=== PATIENT | male | born 1975 | race Caucasian/White ===

== ENCOUNTER → 2017-12-20 07:29 | Outpatient (CLI) | payer BC, SELFPAY ==
[2017-12-20 08:14] LABS: ALB/GLOB Ratio 0.9 RATIO (0.9-2.4); AST(SGOT) 19 U/L (15-37); Alanine Aminotransfer ALT/SGPT 44 U/L (16-61); Albumin, Serum 3.6 g/dL (3.2-5.0); Alkaline Phosphatase 104 U/L (45-117); Anion Gap 7 (5-15); BUN 9 mg/dL (7-18); BUN/Creat Ratio 7.4 RATIO (10-20); Calcium,Total 9.1 mg/dL (8.5-10.1); Chloride 105 mmol/L (98-107); Cholesterol 166 mg/dL (200); Creatinine, Serum 1.21 mg/dL (0.70-1.30); EST Glomerular Filtration Rate 70 mL/min (>60); Est Glom Filt Rate - Afr Amer 85 mL/min (>60); Globulin 4.1 g/dL (2.2-4.2); Glucose 81 mg/dL (74-106); High Density Lipoprotein 46 mg/dL; Potassium 4.1 mmol/L (3.5-5.1); Protein, Total 7.7 g/dL (6.4-8.2); Sodium Level 141 mmol/L (136-145); Triglycerides 80 mg/dL; Very Low Density Lipoprotein 16 mg/dL (5-40)
== END ==
PROVIDERS: Family Provider Family Medicine; PCP Family Medicine; Referring Provider Family Medicine; Visit Provider Family Medicine
DX: Z00.00 Encounter for general adult medical examination without abnormal findings (principal)
CPT/HCPCS: 36415; 80053; 80061

== ENCOUNTER 2018-01-11 10:10 | Emergency (ER) | payer BC, SELFPAY ==
[2018-01-11 10:10] VITALS: BP 146/97; PULSE 68; RESP 19; TEMP 36.6; O2SAT 99; BMI 24.3
[2018-01-11 10:20] VITALS: O2SAT 97
--- NOTE | 2018-01-11 10:20 | EKG12_ITS ---
Test Reason : CP Blood Pressure : / mmHG Vent. Rate : 078 BPM Atrial Rate : 078 BPM P-R Int : 164 ms QRS Dur : 102 ms QT Int : 420 ms P-R-T Axes : 063 059 056 degrees QTc Int : 478 ms Normal sinus rhythm Low voltage QRS (LIMB LEADS) Confirmed by AMARILIS BURGER, NELLA ([id number]), associate entertainment editor AURA MUNIZ ([id number] on 01/13/2018 3:00:48 PM Referred By: Confirmed By:NELLA OLMOS MD
--- NOTE | 2018-01-11 10:20 | RAD_ITS ---
STUDY: X-RAY CHEST REASON FOR EXAM: Male, 43 years old. Chest discomfort TECHNIQUE: Frontal views COMPARISON: September 23, 2016 FINDINGS: The lungs are expanded. There is a left lower lobe probable granuloma. Normal size heart. Normal mediastinum and jovana. Normal visualized pulmonary arteries. Normal visualized aortic arch and descending thoracic aorta. Normal visualized thoracic spine. Normal visualized ribs, clavicles, and shoulders. There is no demonstrated abnormality of the visualized soft tissue structures of the upper abdomen. RAD/Chest 1 View (Portable) IMPRESSION: Probable left lower lobe granuloma. Electronically Signed: Esvin Grant DO at 11:02 EST Tel [phone], Service support ,
--- NOTE | 2018-01-11 10:21 | ED.VISSUMM ---
- ER Visit Summary Date of Service: 01/11/18 Chief Complaint: Chest pain History of Present Illness: The patient is a 43 M with chest pain that started directly over the past week or more. He is having left side dullness and heaviness and fluttering. He also gets lightheaded and short of breath at times. He thinks he might have an anxiety component to this. Symptoms seem to be getting worse over the past week. Today he had symptoms starting at 830 and they have been constant but they seem to be getting better. He had a history of an AV ablation about 10 years ago for V. tach. He denies any other heart disease. He is not taking any medications. He does not have a pacer/defibrillator. He has had these symptoms on and off from time to time, but they seem to be getting worse. He has worn a 30-day monitor on multiple occasions and has occasional ectopic beats, but he says otherwise his monitoring has been unremarkable. No other new or different symptoms today. No history of ACS, PE, or aortic pathology. No recent illness or infections. Physical Examination: Afebrile and vital signs unremarkable. Patient sitting upright and appears comfortable. Alert and oriented. No acute distress. Skin appears normal without diaphoresis or pallor. Heart regular rate and rhythm. Lungs clear. Abdomen soft. No edema noted. Calves soft and supple. Pulses strong and equal, symmetric. Test Results: EKG shows sinus rhythm at a rate of 78. No sign of ischemia or infarction pattern. No ectopic beats or dysrhythmias noted. Laboratory studies and chest x-ray are pending. Emergency Department Course and Treatment: Patient was placed on a monitor. Will check EKG, chest x-ray, and labs. Will monitor and then reevaluate. X-ray showed a left lower lobe granuloma suspected. CBC, metabolic panel and troponin normal. Patient symptoms have waned since he has been here. No dysrhythmias or hypotension noted. Blood pressure remains in the high normal range and heart rate has been in the 70s and 80s. I spoke with Dr. Reyna. Will start the patient on Toprol-XL 50 mg daily. Patient was advised to follow-up in the office. Treatment Plan: As above Disposition: Discharge Impression: Palpitations This note was generated with [employer] dictation software. It may contain incorrect words, spelling, and punctuation that were not noted in review of the chart prior to signing ED Disposition - Plan for ED Patient: Chief Complaint: Chest Pain Referrals: Osiel Linares MD [Primary Care Provider] -
[2018-01-11 10:29] LABS: Absolute Lymphocyte Count 1.84 X10^3/ul (0.83-4.51); Absolute Neutrophil Count 4.4 X10^3/uL (2.0-7.7); Basophil# 0.04 X10^3/uL; Basophil% 0.6 % (0-1); Eosinophil# 0.18 X10^3/uL; Eosinophils% 2.5 % (0-5); Hematocrit 44.2 % (40-54); Hemoglobin 15.5 g/dl (13.0-16.5); Lymphocyte # 1.84 X10^3/ul (4.0); Lymphocyte % 25.7 % (19-41); Mean Corp Hgb Conc 35.1 g/gl (32-36); Mean Corpuscular Volume 85.7 fL (80-94); Mean Platelet Vol. 8.7 fl (6.2-12.0); Monocyte# 0.64 X10^3/uL; Neutrophil # 4.44 X10^3/uL (2.7-7.7); Neutrophil % 62.1 % (47-70); POSITIVE COUNT NO; POSITIVE DIFFERENTIAL NO; POSITIVE MORPHOLOGY NO; Platelet Count 255 K/mm3 (150-450); RBC Distribution Width CV 12.9 % (11.6-14.6); RBC Distribution Width SD 39.2 fl (35.1-43.9); Red Blood Count 5.16 M/mm3 (4.6-6.2); White Blood Count 7.2 K/mm3 (4.4-11.0)
[2018-01-11 10:45] LABS: Anion Gap 7 (5-15); BUN 12 mg/dL (7-18); BUN/Creat Ratio 10.8 RATIO (10-20); Chloride 104 mmol/L (98-107); Creatinine, Serum 1.11 mg/dL (0.70-1.30); EST Glomerular Filtration Rate 77 mL/min (>60); Est Glom Filt Rate - Afr Amer 93 mL/min (>60); Estimated Creatinine Clearance 103.62 ml/min; Glucose 100 mg/dL (74-106); Potassium 3.7 mmol/L (3.5-5.1); Sodium Level 140 mmol/L (136-145)
[2018-01-11 11:17] VITALS: BP 136/90; PULSE 63; RESP 15; O2SAT 97
[2018-01-11 11:39] VITALS: PULSE 88; RESP 22; O2SAT 98
--- NOTE | 2018-01-11 11:47 | ED.DEP ---
ED Disposition - Plan for ED Patient: Chief Complaint: Chest Pain Instructions: ED Palpitations Prescriptions: Metoprolol Succinate [Toprol Xl] 50 mg PO DAILY #30 tab.er.24h Referrals: Tony Reyna MD [STAFF PHYSICIAN] -
[2018-01-11 12:10] VITALS: BP 135/97; PULSE 65; RESP 15; O2SAT 98
--- NOTE | 2018-01-11 12:10 | ED.RN ---
IV DC'ED, CATHETER INTACT, SMALL GAUZE DRESSING PLACED. DISCHARGE INSTRUCTIONS GIVEN TO AND REVIEWED WITH PATIENT, PATIENT DENIES QUESTIONS OR CONCERNS AND VOICES UNDERSTANDING OF DISCHARGE INSTRUCTIONS. PT AMBULATES OUT OF ROOM WITHOUT DIFFICULTY.
--- OUTSIDE RECORDS SUMMARY | 2018-03-06 22:52 | XMS RPT_ITS ---
:1975 Author Organization [facility] Support Name Relationship Address Phone [employer] Unavailable [address] + [place] [address] NELSON ROBLEDO Unavailable [address] + [place] [address] EDIS ROBLEDO/MIKA Unavailable [address] + [place] [address] [employer] Unavailable [address] + [place] [address] NELSON ROBLEDO Unavailable [address] + [place] [address] EDIS ROBLEDO/MIKA Unavailable [address] + [place] [address] [employer] Unavailable [address] + [place] [address] NELSON ROBLEDO Unavailable [address] + [place] [address] EDIS ROBLEDO/MIKA Unavailable [address] + [place] [address] JESUSITA ROBLEDO Unavailable Unavailable + JESUSITA ROBLEDO Unavailable Unavailable + [employer] Unavailable [address] + [place] [address] NELSON ROBLEDO Unavailable [address] + [place] [address] EDIS ROBLEDO/MIKA Unavailable [address] + [place] [address] [employer] Unavailable [address] + [place] [address] NELSON ROBLEDO Unavailable [address] [facility] + [place] [address] EDIS ROBLEDO/MIKA Unavailable [address] + [place] [address] [employer] Unavailable [address] + [place] [address] NELSON ROBLEDO Unavailable [address] + [place] [address] EDIS ROBLEDO/MIKA Unavailable [address] + [place] [address] Care Team Providers Name Role Phone Tony Olmos Attending Unavailable OSIEL ROA Referring Unavailable Monalisa Lea Attending Unavailable Tony Olmos Attending Unavailable OSIEL ROA Referring Unavailable OSIEL ROA Attending Unavailable OSIEL ROA Referring Unavailable OSIEL ROA Primary Care Unavailable OSIEL ROA Primary Care Unavailable Andrew Santos Attending Unavailable Jaison Robison Attending Unavailable OSIEL ROA Referring Unavailable LETTY MCARTHUR Attending Unavailable *SELF, REFERRED Referring Unavailable PROBLEMS PROBLEMS DATE TYPE CONDITION / CODE ATTENDING STATUS SOURCE 12/20/2017 Unknown Z00.00 - OSIEL ROA Active [place] Encounter for [facility] medical Repository examination without abnormal findings / Z00.00(ICD-10) PROCEDURES PROCEDURES No Procedure Records FoundRESULTS RESULTS 12 LEAD ELECTROCARDIOGRAM Observed: 01/13/2018 Status: F Source: [place] 3:00 PM [facility] REPOSITORY [facility] Cardiovascular Services [address] [place] [address] 12 Lead EKG 01/11/18 1014 MR#: [id number] Acct: [id number] Name: FRANCISCO ROBLDEO Rep #: [id number] : 1975 43 From: Tony Olmos MD Attending Dr: Status: DEP ER Ordering Dr: Andrew Santos MD Date: 01/11/18 Location: ED Sex: M C Admitted: Test Reason : CP Blood Pressure : / mmHG Vent. Rate : 078 BPM Atrial Rate : 078 BPM P-R Int : 164 ms QRS Dur : 102 ms QT Int : 420 ms P-R-T Axes : 063 059 056 degrees QTc Int : 478 ms Normal sinus rhythm Low voltage QRS (LIMB LEADS) Confirmed by AMARILIS BURGER, TONY ([id number]), editor & co founder AURA MUNIZ ([id number]) on 01/13/2018 3:00:48 PM Referred By: Confirmed By:TONY OLMOS MD 01/13/18 1500 Date Tony Olmos MD CC: Andrew Santos MD; Osiel Roa MD Signed CARDIOLOGY VISIT Observed: 01/13/2018 Status: F Source: [place] REPORT 11:40 AM [facility] REPOSITORY [place] [facility] [address] [facility] [place] [address] OFFICE VISIT Date of Service: 01/13/18 MR#: [id number] Acct: [id number] Name: FRANCISCO ROBLEDO Rep #: [id number] : 1975 Provider: HAILEY Robison Age/Sex: 43/M Location: [facility] Status: Signed HPI HPI Details: FRANCISCO ROBLEDO, is a 43 M who presents to the office today for a cardiovascular outpatient follow-up. He has a history of underlying palpitations and paroxysmal supraventricular tachycardia status post AV slow pathway ablation in 2007 at [facility]. He presented to [facility] emergency department in January 2018 for worsening chest pain and palpitations over 1 week. His workup was negative, he was started metoprolol 50 mg p.o. daily, and he was discharged home. He states feeling more fatigued since starting metoprolol. He states waking up this morning with calf pain. Pt. denies chest, arm, jaw, or neck discomfort. His exercise tolerance is stable. Pt. denies symptoms of CHF, palpitations, near syncope, or syncopal episodes. Pt. denies edema or claudication issues. Pt. denies orthopnea, PND, fever, chills, blood in urine, blood in stool, or myalgia. Intake Vital Signs01/13/18 Height 6 ft 3 in 01/13/18 Weight: 204 lb 01/13/18 Body Mass Index (BMI) 25.4 01/13/18 Blood Pressure 116/70 01/13/18 Blood Pressure Location Lt brachial Intake Visit Reasons: fluttering Vermin Exterminator Required: No Accompanied by: None Is patient in pain?: No Allergies No Known Allergies Allergy (Verified 01/13/18 09:07) Medications metoprolol succinate ER 25 mg tablet,extended release 24 hr 25 mg PO DAILY #30 tab 01/13/18 [Rx Confirmed 01/13/18] Ejection fraction %: 60 to 64 PFSH Medical History Palpitations (Chronic) Paroxysmal SVT (supraventricular tachycardia) (Chronic) GERD (gastroesophageal reflux disease) (Chronic) [place] disease (Chronic) Surgical History H/O prior ablation treatment (Resolved 2007) History of hemorrhoidectomy (Resolved) Family History Mother Hypertension Grandfather Myocardial infarction, Onset Age: 59 Grandfather CHF (congestive heart failure) Social History Smoking Status: Never smoker alcohol intake: current alcohol intake frequency: a few times a week Alcohol type: beer, wine substance use type: does not use caffeine: Yes Type: coffee Number of servings: 3 ROS Const Const: Positive for fatigue; negative for weakness, body ache, fever(s) or chills ENT ENT: Negative for dizziness Cardio Chest Pain: No Palpitations: No Edema: None Muscle aches with walking: None Resp Respiratory: Negative for SOB with activity, SOB at rest, SOB orthopnea\SOB lying down or paroxysmal nocturnal dyspnea GI GI: Negative nausea, black,tarry stools, bright, red blood in stools or vomiting blood/hematemesis : Negative for hematuria or frequent nighttime urination/ nocturia Musc Musc: Negative for muscle aches/ myalgia Skin Skin: Negative non-healing lesions or rash Neuro Neuro: Negative for weakness, dizziness, lightheadedness, near syncope, syncope or orthostatic symptoms Endo Endo: Positive for fatigue Allergy Allergy/Immunology: Negative for rash Cardiology Exam Const Appearance: cooperative, healthy appearing, comfortable, no acute distress, well developed and well groomed Nutritional Appearance: average body habitus and well nourished Orientation: alert, awake and oriented x3 Head Head: normal to inspection, normocephalic and atraumatic Ears: hearing grossly normal bilaterally Nose: external nose normal Face and Sinus: face symmetric Mouth: oral mucosae normal Teeth and gingiva: dentition normal Eyes Eyelids: eyelids normal Conjunctivae: conjunctivae normal Pupils: PERRL EOM: EOM intact bilaterally Neck Neck: normal visual inspection and full ROM Carotids: normal carotid upstroke Chest Chest inspection: normal inspection of the chest, symmetric chest movement and normal respiratory effort Auscultation: Bilateral: Clear to Auscultation Cardio Palpation: normal PMI Rate: regular rate Rhythm: regular rhythm Heart sounds: S1 normal and S2 normal; negative rub, gallop or murmur GI GI: normal to inspection Neuro General: alert, awake, oriented x3, gait normal, moves all extremities, no focal sensory deficit and no focal motor deficits Skin Skin: no rashes or lesions noted Extremities Pulses: Normal: Right Posterior Tibial Pulse, Left Posterior Tibial Pulse, Right Radial Pulse, Left Radial Pulse Lower Extremity Edema: None: Bilateral Psych Psychological: normal affect Supplemental Info He did have a transthoracic echocardiogram on 07/18/2015. Interpretation Summary Left ventricular systolic function is normal. The estimated ejection fraction is 60 %. Trivial mitral valve insufficiency. Mild tricuspid valve insufficiency. Trivial pulmonic valve insufficiency. Right ventricular systolic pressure estimated to be 21 mmHg. He had a stress echocardiogram performed on 06/20/2006. That was considered a negative stress echocardiogram. He had a cardiac catheterization performed on 08/26/2007 at [facility]. At that time he was considered to have normal coronary arteries with mild systolic dysfunction with a reported LVEF of 53% He had an electrophysiology study performed on 08/27/2007 at [facility]. 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 A Holter monitor was performed on 10/01/2016. This is a 24 hour scan, Normal Sinus Rhythm. Average heart rate was 58 BPM Minimum heart rate was 34 BPM at 4:28 AM, Sinus Bradycardia Maximum heart rate was 96 BPM at 10:35 PM, Normal Sinus Rhythm There were a total of 7 compensatory pauses. No runs noted, No atrial fibrillation noted. The longest R-R interval was 1.9 seconds at 4:28 AM The patient kept a diary with 2 symptoms of feeling chest pain, that did no correlate with scan and one episode of feeling palps, which did not correlate with scan Assessment AND Plan 1. Palpitations R00.2 Plan Patient denies any recurrent palpitations since initiating beta-danny. His beta-danny will be decreased due to side effects. We will continue to monitor. 2. Paroxysmal SVT (supraventricular tachycardia) I47.1 S/P AV slow pathway ablation at [facility] in 2007; Plan His heart rate is well-controlled today in office. His heart rate in the emergency department was also well controlled. He states that his recent palpitations did not feel similar to SVT noted in 2008. If his palpitations become more frequent or predictive we will consider event monitor for further evaluation. If his symptoms are recurring and arrhythmia cannot be detected, we can consider a loop recorder for further evaluation. However, at this time he will continue with beta-danny and we will monitor. 3. Fatigue, unspecified type R53.83 Plan Since initiating beta-danny he has noted more fatigue. He will decrease his beta-danny to 25 mg p.o. daily. We will continue to monitor symptoms. If his palpitations worsen at this lower dose we will return to 50 mg and monitor for worsening fatigue. Perhaps, this improves after being on beta-danny longer. He will continue follow- up with primary care physician for other etiology. Plan Detail Other Medications New: Additional Comments Thank you for allowing us to participate in the patient's plan of care, if you have any questions please do not hesitate to call. This note was generated using a voice recognition system and there may be incorrect words, spelling, or punctuation that were not noted upon reviewing the office note prior to saving. Follow Up 12 Months (PFM) Coding Level of Care Code Off vis,est,level 3 Diagnoses Palpitations R00.2 Paroxysmal SVT (supraventricular tachycardia) I47.1 Fatigue, unspecified type R53.83 Fatigue type: unspecified Coding Level of Care Code Off vis,est,level 3 Diagnoses Palpitations R00.2 Paroxysmal SVT (supraventricular tachycardia) I47.1 Fatigue, unspecified type R53.83 Fatigue type: unspecified 01/13/18 1140 <Electronically signed by Jaison PFEIFFER> Date Jaison H Roof COMMUNITY WORKER-C Cosigner Signature: Date (if applicable) CC: Osiel Roa MD DISCHARGE INSTRUCTION Observed: 01/11/2018 Status: F Source: [place] 4:54 PM [facility] REPOSITORY [facility] Medical Records Department [address] [place] [address] Discharge Instruction 01/11/18 1147 MR#: [id number] Acct: [id number] Name: FRANCISCO ROBLEDO Rep #: [id number] : 1975 43 From: Andrew Santos MD PCP: Osiel Roa MD Status: DEP ER ED Disposition - Plan for ED Patient: Chief Complaint: Chest Pain Instructions: ED Palpitations Prescriptions: Metoprolol Succinate [Toprol Xl] 50 mg PO DAILY #30 tab.er.24h Referrals: Tony Olmos MD [STAFF PHYSICIAN] - What to do if you have Problems For any increased pain, shortness of breath, bleeding, nausea or vomiting, chest pain, or any unexpected problems, contact your Primary Care Provider. Call [facility] ([phone]) or report to the closest Emergency Room. Call 911 if necessary. 01/11/18 9444 <Electronically signed by Andrew Santos MD> Date Andrew Santos MD Cosigner Signature (If Indicated): Date CC: Osiel Roa MD EMERGENCY DEPARTMENT Observed: 01/11/2018 Status: F Source: [place] SUMMARY 4:54 PM [facility] REPOSITORY [facility] Medical Records Department [address] [place] [place] [address] Emergency Department Summary 01/11/18 1021 MR#: [id number] Acct: [id number] Name: FRANCISCO ROBLEDO Rep #: [id number] : 1975 43 From: Andrew Santos MD PCP: Osiel Roa MD Status: DEP ER - ER Visit Summary Date of Service: 01/11/18 Chief Complaint: Chest pain History of Present Illness: The patient is a 43 M with chest pain that started directly over the past week or more. He is having left side dullness and heaviness and fluttering. He also gets lightheaded and short of breath at times. He thinks he might have an anxiety component to this. Symptoms seem to be getting worse over the past week. Today he had symptoms starting at 830 and they have been constant but they seem to be getting better. He had a history of an AV ablation about 10 years ago for V. tach. He denies any other heart disease. He is not taking any medications. He does not have a pacer/defibrillator. He has had these symptoms on and off from time to time, but they seem to be getting worse. He has worn a 30-day monitor on multiple occasions and has occasional ectopic beats, but he says otherwise his monitoring has been unremarkable. No other new or different symptoms today. No history of ACS, PE, or aortic pathology. No recent illness or infections. Physical Examination: Afebrile and vital signs unremarkable. Patient sitting upright and appears comfortable. Alert and oriented. No acute distress. Skin appears normal without diaphoresis or pallor. Heart regular rate and rhythm. Lungs clear. Abdomen soft. No edema noted. Calves soft and supple. Pulses strong and equal, symmetric. Test Results: EKG shows sinus rhythm at a rate of 78. No sign of ischemia or infarction pattern. No ectopic beats or dysrhythmias noted. Laboratory studies and chest x-ray are pending. Emergency Department Course and Treatment: Patient was placed on a monitor. Will check EKG, chest x-ray, and labs. Will monitor and then reevaluate. X-ray showed a left lower lobe granuloma suspected. CBC, metabolic panel and troponin normal. Patient symptoms have waned since he has been here. No dysrhythmias or hypotension noted. Blood pressure remains in the high normal range and heart rate has been in the 70s and 80s. I spoke with Dr. Olmos. Will start the patient on Toprol- XL 50 mg daily. Patient was advised to follow-up in the office. Treatment Plan: As above Disposition: Discharge Impression: Palpitations This note was generated with Agili[employer] dictation software. It may contain incorrect words, spelling, and punctuation that were not noted in review of the chart prior to signing ED Disposition - Plan for ED Patient: Chief Complaint: Chest Pain Referrals: Osiel Roa MD [Primary Care Provider] - What to do if you have Problems For any increased pain, shortness of breath, bleeding, nausea or vomiting, chest pain, or any unexpected problems, contact your Primary Care Provider. Call [facility] ([phone]) or report to the closest Emergency Room. Call 911 if necessary. 01/11/18 8494 <Electronically signed by Andrew Santos MD> Date Andrew Santos MD Cosigner Signature (If Indicated): Date CC: Osiel Roa MD CHEST 1 VIEW Observed: 01/11/2018 Status: F Source: [place] (PORTABLE) 10:21 AM [facility] REPOSITORY [facility] Imaging Services [address] [place] [address] Chest 1 View (Portable) MR#: [id number] Acct: [id number] Name: FRANCISCO ROBLEDO Rep #: [id number] : 1975 M 43 From: Esvin Grant DO PCP: Osiel Roa MD Status: REG ER Study: Chest 1 View (Portable) Date of Exam: 01/11/18 Exam# [id number] Ordering Dr: Andrew Santos MD STUDY: X-RAY CHEST REASON FOR EXAM: Male, 43 years old. Chest discomfort TECHNIQUE: Frontal views COMPARISON: September 23, 2016 FINDINGS: The lungs are expanded. There is a left lower lobe probable granuloma. Normal size heart. Normal mediastinum and jovana. Normal visualized pulmonary arteries. Normal visualized aortic arch and descending thoracic aorta. Normal visualized thoracic spine. Normal visualized ribs, clavicles, and shoulders. There is no demonstrated abnormality of the visualized soft tissue structures of the upper abdomen. RAD/Chest 1 View (Portable) IMPRESSION: Probable left lower lobe granuloma. Electronically Signed: Esvin Grant DO at 11:02 EST Tel [phone], Service support , CC: Andrew Santos MD; Osiel Roa MD Linux Network Engineer: Signed CBC W/DIFF, AUTOMATED Collected: 01/11/2018 Status: F Source: [place] 10:10 AM [facility] REPOSITORY TYPE CODE TESTS RESULT OUT OF RANGE REFERENCE UNITS LAB L100.1000 4.4-11.0 K/mm3 Normal WBC 7.2 LAB L100.1200 4.6-6.2 M/mm3 Normal RBC 5.16 LAB L100.1300 13.0-16.5 g/dl Normal HGB 15.5 LAB L100.1400 40-54 % Normal HCT 44.2 LAB L100.1500 80-94 fL Normal MCV 85.7 LAB L100.1600 27.0-32.0 pg Normal MCH 30.0 LAB L100.1700 32-36 g/gl Normal MCHC 35.1 LAB L100.1810 11.6-14.6 % Normal RDW CV 12.9 LAB L100.1820 35.1-43.9 fl Normal RDW SD 39.2 LAB L100.1900 150-450 K/mm3 Normal PLT 255 LAB L100.2000 6.2-12.0 fl Normal MPV 8.7 LAB L100.2100 47-70 % Normal NEUT% 62.1 LAB L100.2200 19-41 % Normal LY% 25.7 LAB L100.2300 0-10 % Normal MONO% 9.0 LAB L100.2400 0-5 % Normal EO% 2.5 LAB L100.2500 0-1 % Normal BASO% 0.6 LAB L100.2550 0.0-0.9 % Normal IM GRAN % 0.100 Result Comment: IG% - Immature Granulocytes (promyelocytes, myelocytes and metamyelocytes) > 1% indicates that a LEFT SHIFT is Present. LAB L100.2620 2.0-7.7 X10 3/uL Normal Absolute Neut 4.4 LAB L100.2720 0.83-4.51 X10 3/ul Normal Absolute Lymph 1.84 Performed By: #### L100.0100 #### [facility] Laboratory [address] [place], [address] BASIC METABOLIC Collected: 01/11/2018 Status: F Source: [place] PROFILE (BMP) 10:10 AM [facility] REPOSITORY TYPE CODE TESTS RESULT OUT OF RANGE REFERENCE UNITS LAB L501.0100 74-106 mg/dL Normal GLU 100 Result Comment: Fasting Glucose result from 100 to 125 mg/dL suggests IMPAIRED HOMEOSTASIS per A.D.A. criteria. Please note revised GLUCOSE reference range effective 2017. LAB L501.1000 7-18 mg/dL Normal BUN 12 LAB L501.1100 0.70-1.30 mg/dL Normal CREAT,SERUM 1.11 Result Comment: The validity of the calculated GFR AND GFRAA in patients over 70 years has not been determined. Clinical correlation is essential. LAB L501.1110 >60 mL/min Normal EST GFR 77 Result Comment: Non- GFR Calc LAB L501.1115 >60 mL/min Normal EST GFR - AA 93 Result Comment: GFR Calc LAB L501.1255 ml/min Normal Estimated CRCL 103.62 LAB L501.1300 10-20 RATIO BUN/CRE Normal 10.8 LAB L501.2200 8.5-10 mg/dL .1 CA Normal 9.0 LAB L501.5300 136-14 mmol/L 5 NA Normal 140 LAB L501.5600 3.5-5. mmol/L 1 K Normal 3.7 LAB L501.5900 98-107 mmol/L CL Normal 104 LAB L501.6100 21.0-3 mmol/L 2.0 CO2 Normal 29.0 LAB L501.6200 5-15 GAP Normal 7 Performed By: #### L500.2500, L501.4010 #### [facility] [address] [place], [address] TROPONIN-I Collected: 01/11/2018 Status: F Source: [place] 10:10 AM [facility] REPOSITORY TYPE CODE TESTS RESULT OUT OF RANGE REFERENCE UNITS LAB L501.4010 <0.045 ng/mL Normal < 0.015 TROPONIN-I Result Comment: TROPONIN-I EXPECTED VALUES <0.045 Negative 0.045 - 0.590 Consistent with Cardiac Damage > OR = 0.600 Critical Value Not every elevated troponin is indicative of OK. These values should be used with clinical judgement in examining the patient's clinical picture for diagnosis. To establish a diagnosis of [place] versus myocardial injury, there must be a demonstrated rise and/or fall in the troponin values, in addition to ischemic symptoms, EKG changes, new regional wall motion abnormality, and/or angiographical evidence. PLEASE NOTE: REFERENCE RANGES EDITED 17 Performed By: #### L500.2500, L501.4010 #### [facility] [address] [place], [address] COMPREHENSIVE METABOLIC Collected: 12/20/2017 Status: F Source: [place] [facility] 7:34 AM [facility] REPOSITORY TYPE CODE TESTS RESULT OUT OF RANGE REFERENCE UNITS LAB L501.0100 74-106 mg/dL Normal GLU 81 Result Comment: Please note revised GLUCOSE reference range effective 2017. LAB L501.1000 7-18 mg/dL Normal BUN 9 LAB L501.1100 0.70-1.30 mg/dL Normal CREAT,SERUM 1.21 Result Comment: The validity of the calculated GFR AND GFRAA in patients over 70 years has not been determined. Clinical correlation is essential. LAB L501.1110 >60 mL/min Normal EST GFR 70 Result Comment: Non- GFR Calc LAB L501.1115 >60 mL/min Normal EST GFR - AA 85 Result Comment: GFR Calc LAB L501.1300 10-20 RATIO Low BUN/CRE 7.4 LAB L501.1500 6.4-8.2 g/dL Normal T PROT 7.7 LAB L501.1800 3.2-5.0 g/dL Normal ALB 3.6 LAB L501.1950 2.2-4.2 g/dL Normal GLOB 4.1 LAB L501.2000 0.9-2.4 RATIO Normal A/G 0.9 LAB L501.2200 8.5-10.1 mg/dL Normal CA 9.1 LAB L501.4100 15-37 U/L Normal AST 19 LAB L501.4305 45-117 U/L Normal ALK P 104 LAB L501.4405 16-61 U/L Normal ALT 44 LAB L501.4600 0.20-1.00 mg/dL High T BILI 1.10 LAB L501.5300 136-145 mmol/L Normal NA 141 LAB L501.5600 3.5-5.1 mmol/L Normal K 4.1 LAB L501.5900 98-107 mmol/L Normal CL 105 LAB L501.6100 21.0-32.0 mmol/L Normal CO2 29.0 LAB L501.6200 5-15 Normal GAP 7 Performed By: #### L500.4050, L500.4100 #### [facility] [address] [place] [address] [place], [address] LIPID PROFILE Collected: 12/20/2017 Status: F Source: [place] 7:34 AM [facility] REPOSITORY TYPE CODE TESTS RESULT OUT OF RANGE REFERENCE UNITS LAB L501.4900 200 mg/dL Normal CHOL 166 Result Comment: <200 mg/dL Desirable 200-240 mg/dL Borderline >240 mg/dL High Risk LAB L501.5000 mg/dL Normal TRIG 80 Result Comment: The drugs N-Acetylcysteine and Metamizole may falsely depress this assay. Serum Triglycerides Reference Interval Normal <150 mg/dL Borderline high 150 - 199 mg/dL High 200 - 499 mg/dL Very High > or = 500 mg/dL LAB L501.6400 mg/dL Normal HDL 46 Result Comment: The drugs N-Acetylcysteine and Metamizole may falsely depress this assay. Reference Range HDL <40 mg/dL Low HDL Cholesterol HDL >or= 60 mg/dL High HDL Cholesterol LAB L501.6500 0-130 mg/dL Normal LDL 104 LAB L501.6600 5-40 mg/dL Normal VLDL 16 Performed By: #### L500.4050, L500.4100 #### [facility] [address] [place], [address] CARDIOLOGY VISIT Observed: 10/10/2017 Status: F Source: [place] REPORT 4:08 PM [facility] REPOSITORY [facility] [address] [place] [address] OFFICE VISIT Date of Service: 10/10/17 MR#: [id number] Acct: [id number] Name: FRANCISCO ROBLEDO Rep #: [id number] : 1975 Provider: Tony Olmos MD Age/Sex: 42/M Location: [facility] Status: Signed HPI HPI Details: FRANCISCO ROBLEDO, is a 42 M who presents to the office today for for outpatient cardiovascular follow-up of his history of underlying palpitations and paroxysmal supraventricular tachycardia status post AV slow pathway ablation- 2007. Overall since his visit of 09/26/2016 he states he is doing well. He has had no obvious ongoing palpitations or rapid rates. There has been no evidence of near syncope or syncope. At the same time he has demonstrated no obvious classic symptoms of angina pectoris or CHF. He remains active. He has not required any other diagnostic testing or therapeutic intervention Intake Vital Signs10/10/17 Height 6 ft 3 in 10/10/17 Weight: 204 lb 10/10/17 Body Mass Index (BMI) 25.4 10/10/17 Blood Pressure 128/82 10/10/17 Blood Pressure Location Lt brachial Intake Visit Reasons: 1 Y FU Vermin Exterminator Required: No Accompanied by: none Is patient in pain?: No Allergies No Known Allergies Allergy (Verified 10/10/17 15:04) Medications No Known/Unobtainable [No Known Home Medications] 09/23/16 [History Confirmed 09/23/16] PFSH Medical History Paroxysmal SVT (supraventricular tachycardia) (Acute) GERD (gastroesophageal reflux disease) (Chronic) [place] disease (Chronic) Surgical History H/O prior ablation treatment (Resolved 2007) History of hemorrhoidectomy (Resolved) Family History Mother Hypertension Grandfather Myocardial infarction, Onset Age: 59 Grandfather CHF (congestive heart failure) Social History Smoking Status: Never smoker alcohol intake: current substance use type: does not use ROS Const Const: Negative for fatigue, weakness, night sweats, excessive sweating, frequent falls, headache(s) or daytime sleepiness Eyes Eyes: Negative for loss of peripheral vision, transient loss of vision, blind spots, double vision or blurry vision ENT ENT: Negative for headache(s), dizziness, balance problems, Nosebleed/epistaxis, tongue swelling or lip swelling Cardio Chest Pain: No Palpitations: No Edema: None Muscle aches with walking: None Resp Respiratory: Negative for SOB at rest, SOB orthopnea\SOB lying down, Cough, paroxysmal nocturnal dyspnea or SOB with activity GI GI: Negative nausea, vomiting, heartburn, black,tarry stools or bright, red blood in stools : Negative for hematuria Musc Musc: Negative for balance problems, muscle aches/ myalgia, muscle weakness or joint pain Skin Skin: Negative non-healing lesions, unusual bruising or rash Neuro Neuro: Negative for weakness, frequent falls, headache(s), double vision, dizziness, lightheadedness, orthostatic symptoms, blurry vision or lack of coordination Hector Hematologic/Lymphatic: Negative for easy bruising or easy bleeding Endo Endo: Negative for fatigue, excessive sweating, cold intolerance, heat intolerance, increased thirst/drinking or hair loss Psych Psych: Negative for anxiety or depression Allergy Allergy/Immunology: Negative for throat swelling, Negative for tongue swelling, Negative for hives, Negative for rash, Negative for lip swelling Cardiology Exam Const Appearance: cooperative, healthy appearing, comfortable, no acute distress, well developed and well groomed Nutritional Appearance: thin Orientation: alert, awake and oriented x3 Head Head: normal to inspection, normocephalic and atraumatic Ears: hearing grossly normal bilaterally Nose: external nose normal Face and Sinus: face symmetric Mouth: oral mucosae normal Teeth and gingiva: dentition normal Eyes Eyelids: eyelids normal Conjunctivae: conjunctivae normal Pupils: PERRL EOM: EOM intact bilaterally Neck Neck: normal visual inspection and full ROM Carotids: normal carotid upstroke Chest Chest inspection: normal inspection of the chest and symmetric chest movement Auscultation: Bilateral: Clear to Auscultation Cardio Palpation: normal PMI Rate: regular rate Rhythm: regular rhythm Heart sounds: S1 normal and S2 normal GI GI: normal to inspection, bowel sounds present and soft Neuro General: alert, awake, oriented x3, gait normal, moves all extremities, no focal sensory deficit and no focal motor deficits Skin Skin: no rashes or lesions noted Extremities Pulses: Normal: Right Radial Pulse, Left Radial Pulse Lower Extremity Edema: None: Bilateral Psych Psychological: normal affect Supplemental Info He did have a transthoracic echocardiogram on 07/18/2015. Interpretation Summary Left ventricular systolic function is normal. The estimated ejection fraction is 60 %. Trivial mitral valve insufficiency. Mild tricuspid valve insufficiency. Trivial pulmonic valve insufficiency. Right ventricular systolic pressure estimated to be 21 mmHg. He had a stress echocardiogram performed on 06/20/2006. That was considered a negative stress echocardiogram. He had a cardiac catheterization performed on 08/26/2007 at [facility]. At that time he was considered to have normal coronary arteries with mild systolic dysfunction with a reported LVEF of 53% He had an electrophysiology study performed on 08/27/2007 at [facility]. 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 A Holter monitor was performed on 10/01/2016. This is a 24 hour scan, Normal Sinus Rhythm. Average heart rate was 58 BPM Minimum heart rate was 34 BPM at 4:28 AM, Sinus Bradycardia Maximum heart rate was 96 BPM at 10:35 PM, Normal Sinus Rhythm There were a total of 7 compensatory pauses. No runs noted, No atrial fibrillation noted. The longest R-R interval was 1.9 seconds at 4:28 AM The patient kept a diary with 2 symptoms of feeling chest pain, that did no correlate with scan and one episode of feeling palps, which did not correlate with scan Assessment AND Plan Problems 1. PSVT (paroxysmal supraventricular tachycardia) I47.1 Plan At the present time he appears to be doing well. He will continue his current medical management/observational follow-up. He will notify the office of any concerns. Otherwise it was not felt he required further medical therapy or diagnostic studies at this time. He will be scheduled for an outpatient visit in approximately 1 year. Thank you for allowing me to participate in the care of your patient. Please don't hesitate to call if any issues arise. This note was generated using a voice recognition system and there may be incorrect words, spelling or punctuation that were not noted when reviewing the office note prior to saving. Plan Detail Follow Up 1 Year (PFM) Coding Level of Care Code Off vis,est,level 2 Diagnoses PSVT (paroxysmal supraventricular tachycardia) I47.1 Coding Level of Care Code Off vis,est,level 2 Diagnoses PSVT (paroxysmal supraventricular tachycardia) I47.1 10/10/17 1608 <Electronically signed by Tony Olmos MD> Date Tony Olmos MD Cosigner Signature: Date (if applicable) CC: Osiel Roa MD ALLERGIES ALLERGIES DATE TYPE / CODE NAME / CODE REACTION SEVERITY SOURCE 01/13/2018 Drug No Known Unknown [facility] Allergy/4160 Allergies/F00 [facility] 12984(SNOMED [id number](RXNOR Repository CT) M) ENCOUNTERS ENCOUNTERS ADMIT/DISCHARGE ACCOUNT ADMITTING ENCOUNTER LOCATION SOURCE NUMBER CLASS 01/13/2018/01/14/20 [id number] Ambulatory BMSBuilding:Sly Merchant [place] Repository 01/11/2018/01/12/20 [id number] Emergency [address] ing:ED Repository 12/20/2017 [id number] Ambulatory [facility] ing:LAB Repository 11/25/2017 [id number] Ambulatory [address] [place] [address] Repository 10/10/2017/10/11/19 [id number] Ambulatory BMSBuilding:Sly De Paz 18 .[facility] Repository 10/06/2017 [id number] Ambulatory BMSBuilding:Sly De Paz [place] Repository 07/28/2017 [id number] Ambulatory BMSBuilding:Sly [place] Repository PAYERS PAYERS ENCOUNTER GUARANTOR PAYER SUBSCRIBER SOURCE 01/13/2018 FRANCISCO E [id number] Primary GRACY F Baldev [place] Insurance:ANTHEMPolic [facility] [place] Number: [id number] 09[address]Tlq: (330) [id number] Repository [phone] () Date:1435-03-95[address] [place] [id number]: 01/13/2018 Secondary NOT GIVENUNK [place] Insurance:SELF PAY [facility] Number: Effective Repository Date:2018-01-13 01/11/2018 FRANCISCO Marquis [id number] Primary GRACY F [place] Insurance:ANTHEMPolic [facility]OLFDOB: [facility] [place] y Number: [id number] [id number]: (330) [id number] Repository [phone] () Date:0982-34-20[id number] [place] [address] [id number]: 01/11/2018 Secondary NOT GIVENUNK [place] Insurance:SELF PAY [facility] Number: Effective Repository Date:2018-01-11 12/20/2017 FRANCISCO Benitez [id number] Primary GRACY F [place] Insurance:ANTHEMPolic WOLFDOB: [facility] [place] y Number: [id number] [address]Cyp: (330) [id number] Repository [phone] () Date:3938-41-30JZ [address] [place] [address] 29034CZ: 12/20/2017 Secondary NOT GIVENUNK [place] Insurance:SELF PAY [facility] Number: Effective Repository Date:2017-12-20 11/25/2017 FRANCISCO WOLFDOB: [facility] [place] [facility] [id number] [facility] y Number: [facility] [place] [address] [id number] , [place] [address] Date:Plan Name:Health 10/10/2017 FRANCISCO GALEANO0 Primary GRACY F [place] Insurance:ANTHEMPolic WOLFDOB: [facility] saima JERONIMO y Number: [id number] [id number]: (330) [id number] Repository [phone] () Date:5306-08-44[address], [place] [address]SK: 10/10/2017 Secondary NOT GIVENUNK [place] Insurance:SELF PAY [facility] Number: Effective Repository Date:2017-10-10 10/06/2017 Francisco Galeano0 Primary GRACY F [place] Insurance:ANTHEMPolic WOLFDOB: [facility] saima [place] y Number: [id number] [id number]: (330) [id number] Repository [phone] () Date:8719-55-53[address] [place] [address] [place] [address]VB: 10/06/2017 Secondary NOT GIVENUNK [place] Insurance:SELF PAY [facility] Number: Effective Repository Date:2017-10-06 07/28/2017 Francisco Galeano0 Primary GRACY F [place] Insurance:ANTHEMPolic WOLFDOB: [facility] saima [place] y Number: [id number] [id number]: (330) [id number] Repository [phone] () Date:8659-32-49[address] [place] [address]MI: 07/28/2017 Secondary NOT GIVENUNK [place] Insurance:SELF PAY [facility] Number: Effective Repository Date:2017-01-30
== END 2018-01-11 12:12 | disposition home or self-care (01) ==
LOC: ED 10:54
PROVIDERS: Emergency Provider Emergency Medicine; Family Provider Family Medicine; PCP Family Medicine
DX: R00.2 Palpitations (principal); R07.89 Other chest pain; R42 Dizziness and giddiness; R06.00 Dyspnea, unspecified
CPT/HCPCS: 71045; 80048; 84484; 85025; 93005; 99284; A4216

== ENCOUNTER → 2018-08-08 | Outpatient (CLI) | payer BC, SELFPAY ==
[2018-01-13 09:02] VITALS: BMI 25.4
[2018-08-08 07:47] LABS: Hematocrit 45.2 % (40-54); Hemoglobin 15.7 g/dl (13.0-16.5); Mean Corp Hgb Conc 34.7 g/gl (32-36); Mean Corpuscular Hgb 29.8 pg (27.0-32.0); Mean Corpuscular Volume 85.8 fL (80-94); Mean Platelet Vol. 8.9 fl (6.2-12.0); Platelet Count 184 K/mm3 (150-450); RBC Distribution Width CV 12.9 % (11.6-14.6); RBC Distribution Width SD 40.2 fl (35.1-43.9); Red Blood Count 5.27 M/mm3 (4.6-6.2); Scan Indicated on CBC? Y/N NO; White Blood Count 5.2 K/mm3 (4.4-11.0)
[2018-08-08 08:14] LABS: Erythrocyte Sedimentation Rate 5 mm/hr (0-15)
[2018-08-08 08:16] LABS: ALB/GLOB Ratio 1.1 RATIO (0.9-2.4); AST(SGOT) 27 U/L (15-37); Alanine Aminotransfer ALT/SGPT 66 U/L (16-61); Albumin, Serum 3.8 g/dL (3.2-5.0); Alkaline Phosphatase 78 U/L (45-117); Anion Gap 7 (5-15); BUN 9 mg/dL (7-18); BUN/Creat Ratio 7.3 RATIO (10-20); Calcium,Total 8.8 mg/dL (8.5-10.1); Chloride 109 mmol/L (98-107); Cholesterol 189 mg/dL (200); Creatinine, Serum 1.23 mg/dL (0.70-1.30); EST Glomerular Filtration Rate 68 mL/min (>60); Est Glom Filt Rate - Afr Amer 83 mL/min (>60); Globulin 3.6 g/dL (2.2-4.2); Glucose 83 mg/dL (74-106); High Density Lipoprotein 56 mg/dL; Potassium 3.8 mmol/L (3.5-5.1); Protein, Total 7.4 g/dL (6.4-8.2); Sodium Level 143 mmol/L (136-145); Thyroid Stim Hormone (TSH) 3.06 uIU/mL (0.358-3.74); Triglycerides 78 mg/dL; Very Low Density Lipoprotein 16 mg/dL (5-40)
[2018-08-08 08:22] LABS: D-Dimer Quantitative (DVT/PE) < 0.27 FEU/ug/m (0.27-0.49)
== END | disposition home or self-care (01) ==
LOC: LAB 07:17
PROVIDERS: Family Provider Family Medicine; PCP Family Medicine; Referring Provider Family Medicine; Visit Provider Family Medicine
DX: Z00.00 Encounter for general adult medical examination without abnormal findings (principal); R07.9 Chest pain, unspecified; R42 Dizziness and giddiness
CPT/HCPCS: 36415; 80053; 80061; 84443; 85027; 85379; 85652

== ENCOUNTER → 2020-03-28 09:29 | Outpatient (CLI) | payer BC, SELFPAY ==
[2019-12-31 10:02] VITALS: BMI 26.2
--- NOTE | 2020-03-28 09:40 | NM_ITS ---
CLINICAL: 45-year-old male with reported history of abdominal pain. 99m Tc MAG3 DIURETIC RENAL SCINTIGRAPHY COMPARISON: None available FINDINGS: Following the intravenous administration of 10.0 mCi of 99m Tc MAG3, renal images reveal: 1. The flow study demonstrates relatively symmetric-normal arterial phase distribution of the radiopharmaceutical is demonstrated in the right-left kidneys. 2. Immediate static delayed nephrogram images depict prompt, homogeneous tracer uptake by the renal parenchyma of both kidneys. Collecting structure visualization is defined at 2 minutes following tracer injection bilaterally. Washout of the radiopharmaceutical by the renal parenchyma of the left kidney appears qualitatively normal in delayed in the right kidney. There is spontaneous drainage of the left kidney collecting system during 21 minutes of pre-Lasix sequential image acquisition. Persistent collecting system activity is defined in the right kidney prior to diuretic provision. 3. The fsfjo-hz-baoj ratio of total renal parenchymal function was calculated to be 50/50. Furosemide 10 mg was administered intravenously. The post Lasix T ? washout of the right kidney collecting system activity was calculated to be < 10 minutes, (normal < 10 minutes). NM/Renal Scan w/ Pharm Intervent IMPRESSION: 1. There is preservation of left kidney renal parenchymal-cortical function. Cortical dysfunction is defined in the right kidney. 2. The prominent right kidney collecting system demonstrates a normal physiologic response to induced diuresis negating the presence of significant mechanical and/or functional obstruction. Electronically Signed: Nathan Gates DO at 22:55 EST Tel , Service support ,
== END ==
PROVIDERS: PCP Family Medicine; Referring Provider Urology; Visit Provider Urology
DX: N13.5 Crossing vessel and stricture of ureter without hydronephrosis (principal)
CPT/HCPCS: 78708; A9562; J1940

== ENCOUNTER → 2020-08-28 06:48 | Outpatient (CLI) | payer BC, SELFPAY ==
[2019-12-31 10:02] VITALS: BMI 26.2
[2020-08-28 08:00] LABS: Hematocrit 45.8 % (40-54); Hemoglobin 15.4 g/dL (13.0-16.5); Mean Corp Hgb Conc 33.6 g/dL (32-36); Mean Corpuscular Hgb 29.7 pg (27.0-32.0); Mean Corpuscular Volume 88.2 fL (80-94); Mean Platelet Vol. 9.2 fl (6.2-12.0); Platelet Count 209 K/mm3 (150-450); RBC Distribution Width CV 12.5 % (11.6-14.6); RBC Distribution Width SD 40.9 fl (35.1-43.9); Red Blood Count 5.19 M/mm3 (4.6-6.2)
[2020-08-28 08:32] LABS: Vitamin D,25 Hydroxy 34.6 ng/mL
[2020-08-28 08:38] LABS: AST(SGOT) 23 U/L (15-37); Alanine Aminotransfer ALT/SGPT 43 U/L (16-61); Albumin, Serum 3.7 g/dL (3.2-5.0); Alkaline Phosphatase 83 U/L (45-117); Anion Gap 3 (5-15); BUN 14 mg/dL (7-18); BUN/Creat Ratio 12.7 RATIO (10-20); Calcium,Total 8.7 mg/dL (8.5-10.1); Chloride 106 mmol/L (98-107); Cholesterol 177 mg/dL (200); EST Glomerular Filtration Rate 77 mL/min (>60); Est Glom Filt Rate - Afr Amer 93 mL/min (>60); Globulin 3.6 g/dL (2.2-4.2); Glucose 80 mg/dL (74-106); High Density Lipoprotein 48 mg/dL; Potassium 4.2 mmol/L (3.5-5.1); Protein, Total 7.3 g/dL (6.4-8.2); Sodium Level 139 mmol/L (136-145); Thyroid Stim Hormone (TSH) 2.49 uIU/mL (0.358-3.74); Triglycerides 103 mg/dL; Very Low Density Lipoprotein 21 mg/dL (5-40)
== END ==
PROVIDERS: PCP Family Medicine; Referring Provider Family Medicine; Visit Provider Family Medicine
DX: Z00.00 Encounter for general adult medical examination without abnormal findings (principal)
CPT/HCPCS: 36415; 80053; 80061; 82306; 84443; 85027

== ENCOUNTER → 2022-01-23 | Outpatient (CLI) | payer BC, SELFPAY ==
[2022-01-23 10:16] LABS: AST(SGOT) 19 U/L (15-37); Alanine Aminotransfer ALT/SGPT 49 U/L (16-61); Alkaline Phosphatase 82 U/L (45-117); Bilirubin, Direct 0.28 mg/dL (0.00-0.30); Cholesterol 185 mg/dL (200); Globulin 3.1 g/dL (2.2-4.2); High Density Lipoprotein 59 mg/dL; Protein, Total 7.1 g/dL (6.4-8.2); Triglycerides 79 mg/dL; Very Low Density Lipoprotein 16 mg/dL (5-40)
== END | disposition home or self-care (01) ==
LOC: MTLAB 07:33
PROVIDERS: PCP Family Medicine; Referring Provider Internal Medicine Cardiovascular Disease; Visit Provider Internal Medicine Cardiovascular Disease
DX: E78.00 Pure hypercholesterolemia, unspecified (principal)
CPT/HCPCS: 36415; 80061; 80076

== ENCOUNTER → 2023-04-15 | Outpatient (CLI) | payer BC, SELFPAY ==
--- OUTSIDE RECORDS SUMMARY | 2023-04-15 07:28 | XMS RPT_ITS | CCD ---
Author Name Unknown Address [address] [place] [address] Organization [facility] Care Team Providers Care Director Vaccine Name Role Phone Catalan Zandra Unavailable Unavailable Zandra Catalan Unavailable Unavailable Iona Sterling Unavailable Unavailable Meka, Nuris Y Unavailable Unavailable LETTY WEIR Unavailable Unavailable *SELF, REFERRED Unavailable Unavailable Tosha BURGER, Nathan Buck Unavailable Iona Sterling Unavailable Unavailable Letty Weir Unavailable Unavailable Allergies Allergy Classification Reported Allergen(s) Allergy Type Date of Onset Reaction(s) Facility (1 source) No Alert Propensity to adverse reactions to drug 1 [facility] Medications Completed/Discontinued Medications Medication Drug Class(es) Dates Sig (Normalized) Sig (Original) aspirin 325 mg oral tablet (6 sources) Nonsteroidal Anti-inflammatory Drug Start: 06-29-2015 ASPIRIN 325 MG TABS as needed ASPIRIN [id number] Tony Reyna MD Problems Active Problems Problem Classification Problem Date Documented Date Episodic/Chronic Cardiac dysrhythmias (5 sources) Supraventricular tachycardia; Translations: [Supraventricular tachycardia] Onset: 06-28-2015 06-28-2015 Chronic Other acquired deformities (1 source) Spondylolysis, lumbosacral region; Translations: [Spondylolysis, lumbosacral region] Onset: 03-31-2018 03-31-2018 Episodic Other and unspecified benign neoplasm (1 source) Hemangioma of skin and subcutaneous tissue Onset: 09-07-2020 Episodic Other and unspecified benign neoplasm (2 sources) Melanocytic nevi of other parts of face Onset: 11-25-2017 Episodic Other and unspecified benign neoplasm (1 source) Melanocytic nevi of trunk Onset: 09-07-2020 Episodic Other and unspecified benign neoplasm (2 sources) Melanocytic nevi of right upper limb, including shoulder Onset: 09-07-2020 Episodic Other and unspecified benign neoplasm (1 source) Melanocytic nevi of left upper limb, including shoulder Onset: 09-07-2020 Episodic Other and unspecified benign neoplasm (1 source) Melanocytic nevi of right lower limb, including hip Onset: 09-07-2020 Episodic Other and unspecified benign neoplasm (1 source) Melanocytic nevi of left lower limb, including hip Onset: 09-07-2020 Episodic Other screening for suspected conditions (not mental disorders or infectious disease) (1 source) Encounter for screening for malignant neoplasm of skin Onset: 09-07-2020 Episodic Other skin disorders (1 source) Other melanin hyperpigmentation Onset: 09-07-2020 Episodic Other skin disorders (1 source) Other seborrheic keratosis Onset: 09-07-2020 Episodic Spondylosis; intervertebral disc disorders; other back problems (1 source) Other intervertebral disc degeneration, lumbar region; Translations: [Other intervertebral disc degeneration, lumbar region] Onset: 03-31-2018 03-31-2018 Chronic Past or Other Problems Problem Classification Problem Date Documented Da te Episodic/Chronic Cardiac dysrhythmias (5 sources) Palpitations; Translations: [Palpitations] Onset: 06-28-2015 06-28-2015 Episodic Nonspecific chest pain (5 sources) Chest pain, unspecified; Translations: [Chest pain, unspecified] Onset: 06-28-2015 06-28-2015 Episodic Other nutritional; endocrine; and metabolic disorders (5 sources) Body mass index (BMI) 25.0-25.9, adult; Translations: [Body mass index (BMI) 25.0-25.9, adult] Onset: 08-07-2015 08-07-2015 Episodic Unclassified (1 source) Problem Results Test Name Value Interpretation Reference Range Facil ity Vital Signs Date Time Vital Sign Value Performing Clinician Facility 09-26-2016 09:29-0400 BMI (Body Mass Index) 26.35 kg/m2 Zandra Kineta Work Phone: 09-26-2016 09:29-0400 BP Diastolic 78 mm[Hg] Zandra Catalan [facility] Work Phone: 09-26-2016 09:29-0400 BP Systolic 110 mm[Hg] [facility]andra[facility] Work Phone: 09-26-2016 09:29-0400 Height 190.5 cm [facility] Work Phone: 09-26-2016 09:29-0400 Pulse (Heart Rate) 58 /min Zandra [facility] Work Phone: 09-26-2016 09:29-0400 Weight 95.62 kg Zandra [facility] Work Phone: 07-29-2016 15:07-0400 BMI (Body Mass Index) 26.5 kg/m2 Iona [facility] Work Phone: 07-29-2016 15:07-0400 BP Diastolic 72 mm[Hg] Iona [facility] Work Phone: 07-29-2016 15:07-0400 BP Systolic 122 mm[Hg] Iona [facility] Work Phone: 07-29-2016 15:07-0400 Height 190.5 cm Iona [facility] Work Phone: 07-29-2016 15:07-0400 Pulse (Heart Rate) 56 /min Iona [facility] Work Phone: 07-29-2016 15:07-0400 Respiratory Rate 16 /min Iona [facility] Work Phone: 07-29-2016 15:07-0400 Weight 96.16 kg Iona [facility] Work Phone: 08-07-2015 14:58-0400 BMI (Body Mass Index) 25.37 kg/m2 Nuris Ackerman [facility] Work Phone: 08-07-2015 14:58-0400 BP Diastolic 78 mm[Hg] Joseumi Sylviais [facility] Work Phone: 08-07-2015 14:58-0400 BP Systolic 120 mm[Hg] Nuris Ackerman [facility] Work Phone: [phone] 14:58-0400 BSA (Body Surface Area) 2.21 m2 Harumi DeFinis [facility] Work Phone: 08-07-2015 14:58-0400 Pulse (Heart Rate) 60 /min Harumi DeFinis [facility] Work Phone: 08-07-2015 14:58-0400 Respiratory Rate 16 /min Harumi DeFinis [facility] Work Phone: 08-07-2015 14:58-0400 Weight 92.08 kg Harumi DeFinis [facility] Work Phone: 06-29-2015 10:26-0400 Heart rate 58 /min Iona Sterling [facility] Work Phone: 06-29-2015 10:02-0400 Height 190.5 cm Harzbigniew [employer] [facility] Work Phone: 1975 23:00-0500 >na< Letty Weir Dept[facility] of Dermatology NEGATED: Highlighted [id number] 14:49-0500 BMI (Body Mass Index) 25.72 kg/m2 Litzy [facility] Work Phone: NEGATED: Highlighted [id number] 14:49-0500 BP Diastolic 78 mm[Hg] Litzy [facility] Work Phone: NEGATED: Highlighted [id number] 14:49-0500 BP Systolic 120 mm[Hg] Litzy Derrick [facility] Work Phone: NEGATED: Highlighted [id number] 14:49-0500 [facility] Work [facility]: NEGATED: Highlighted [id number] 14:49-0500 Height [address] [facility] Work Phone: NEGATED: Highlighted [id number] 14:49-0500 Pulse (Heart Rate) 62 /min Litzy Meza LPN [facility] Work Phone: NEGATED: Highlighted [id number] 14:49-0500 Weight 92.99 kg Litzy Meza LPN [facility] Work Phone: NEGATED: Highlighted [id number] 14:49-0500 Weight 93 kg Litzy Meza LPN [facility] Work Phone: Encounters Encounter Date Encounter Type Care Provider Facility Start: 09-07-2020 Office outpatient vi sit 15 minutes Letty Weir [facility] D[facility]at[facility] Start: 03-31-2018 End: 03-31-2018 Patient encounter procedure Nathan Givens MD Work Phone: [facility] Work Phone: Start: 03-31-2018 End: 03-31-2018 Pt evaluation Nathan Givens MD Work Phone: [facility] Work Phone: Start: 11-25-2017 Patient encounter LETTY Montgomery [id number] Start: 11-25-2017 Office outpatient ne w 30 minutes Letty Weir [facility]ology Start: 11-25-2017 Office outpatient vi sit 15 minutes Letty Weir [facility] Procedures Date Procedure Procedure Detail Performing Clinician Start: 03-31-2018 End: 03-31-2018 Blood pressure within normal parameters - no follow-up required Nathan Givens MD Work Phone: Start: 03-31-2018 End: 03-31-2018 BMI documented as above normal parameters - follow-up documented Nathan Givens MD Work Phone: Start: 03-31-2018 End: 03-31-2018 Documentation of current medications Nathan Givens MD Work Phone: Start: 03-31-2018 End: 03-31-2018 Pain assessment documented as positive - follow-up documented Nathan Givens MD Work Phone: Start: 03-31-2018 End: 03-31-2018 Tobacco non-user Nathan Givens MD Work Phone: Start: 07-29-2016 End: 07-29-2016 Dietary management education, guidance, and counseling Iona Sterling Start: 07-29-2016 End: 07-29-2016 Follow Up Appt 1 year Tony Lo Start: 07-29-2016 End: 07-29-2016 PFM Tony Reyna MD Start: 08-07-2015 End: 08-07-2015 Follow Up Appt 1 year Monalisa morales PA-C Work Phone: Start: 08-07-2015 End: 08-07-2015 PFM Monalisa Monahan PA-C Work Phone: Start: 06-29-2015 End: 06-29-2015 *BMP Tony Reyna MD Start: 06-29-2015 End: 06-29-2015 CBC W Auto Differential panel - Blood Tony Reyna MD Start: 06-29-2015 End: 07-27-2015 Echocardiography Tony Reyna MD Start: 06-29-2015 End: 07-27-2015 Electrocardiogram, complete Tony smalls MD Start: 06-29-2015 End: 06-29-2015 Follow Up Appt 6 weeks Tony Reyna MD Start: 06-29-2015 End: 06-29-2015 Magnesium Tony Reyna MD Start: 06-29-2015 End: 06-29-2015 MMM Tony Reyna MD Start: 06-29-2015 End: 08-07-2015 Remote 30 day ecg rev/report Tony harp MD Start: 06-29-2015 End: 06-29-2015 Thyroid stimulating hormone (TSH) Tony Reyna MD Start: 06-29-2015 End: 06-29-2015 Thyroxine (T4) Tony Reyna MD Plan of Treatment Date Care Activity Detail Author Start: 03-31-2018 End: 03-31-2018 Appointment Appointment [facility] Work Phone: Start: 03-31-2018 End: 03-31-2018 Radex spine lumbosacral minimum 4 views XR LUMBAR 4VWS FLEX/EX [facility] Work Phone: Start: 07-28-2017 End: 07-28-2017 Appointment Appointment [facility] Work Phone: Start: 09-26-2016 End: 09-26-2016 24 hour holter monitor 24 hour holter monitor [facility] Work Phone: Start: 07-29-2016 End: 07-29-2016 Appointment Appointment [facility] Work Phone: Start: 07-29-2016 End: 07-29-2016 Follow Up Appt 1 year Follow Up Appt 1 year [facility] Work Phone: Start: 07-29-2016 End: 07-29-2016 PFM PFM [facility] Work Phone: Start: 08-07-2015 End: 08-07-2015 Follow Up Appt 1 year Follow Up Appt 1 year [facility] Work Phone: Start: 08-07-2015 End: 08-07-2015 PFM PFM [facility] Work Phone: Start: 06-29-2015 End: 06-29-2015 *BMP *BMP [facility] Work Phone: Start: 06-29-2015 End: 06-29-2015 CBC W Auto Differential panel - Blood *CBC without Diff [facility] Work Phone: Start: 06-29-2015 End: 06-29-2015 Echocardiography Echocardiogram (complete) [facility] Work Phone: Start: 06-29-2015 End: 07-27-2015 Electrocardiogram, complete EKG (In office) [facility] Work Phone: Start: 06-29-2015 End: 06-29-2015 Follow Up Appt 6 weeks Follow Up Appt 6 weeks [facility] Work Phone: Start: 06-29-2015 End: 06-29-2015 Magnesium *Magnesium [facility] [employer] Work Phone: Start: 06-29-2015 End: 06-29-2015 MMM MMM [facility] Work Phone: Start: 06-29-2015 End: 06-29-2015 Remote 30 day ecg rev/report 30 Day Holter Monitor [facility] [employer] [employer] Work Phone: Start: 06-29-2015 End: 06-29-2015 Thyroid stimulating hormone (TSH) *TSH [facility] Work Phone: Start: 06-29-2015 End: 06-29-2015 Thyroxine (T4) *T4 (Total) [facility] Work Phone: Immunizations Immunization Date Immunization Notes Care Provider Mamie valladares 1975 pneumococcal conjuga te vaccine, 7 valent Letty Weir [facility] Dermatology No information available. Litzy Meza LPN [facility] Work Phone: Payers Date Payer Category Payer Unknown [id number] [id number]. [id number] Unknown [id number] Social History Date Type Detail Facility Start: 03-31-2018 End: 03-31-2018 Assertion Unknown if ever smoked [facility] Work Phone: Start: 1975 Sex Assigned At Male D ept[facility] 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 FALL SCREENING: Has the patient had 2 falls in the last year or 1 fall with injury or currently using an Ambulatory Assistive Device (Walker, Cane, Wheelchair, Crutches, etc.)? 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 FALL SCREENING: Has the patient had 2 falls in the last year or 1 fall with injury or currently using an Ambulatory Assistive Device (Walker, Cane, Wheelchair, Crutches, etc.)? No PATIENT GENDER DATA: Male PATIENT RELEVANT IMPLANT DATA REVIEWED: Not Applicable ALLERGIES: Reviewed and unchanged CONTRAST ALLERGY: NO. EXAM: CT -CONTRAST INDUCED NEPHROPATHY RISK FACTORS: Not applicable CREATININE: Creatinine Date Value Ref Range Status 12/11/2018 1.03 0.73 - 1.22 mg/dL Final eGFR-All Other Races Date Value Ref Range Status 12/11/2018 >60 . Final Comment: eGFR (Estimated GFR) Units of measure: mL/min/1.73 meters squared eGFR is derived from the reexpressed MDRD Study equation using the following parameters: serum creatinine, age, gender and race. The creatinine assay has been calibrated to be traceable to IDMS. An eGFR <60 mL/min/1.73m2 for >3 months is consistent with chronic kidney disease. Refer to KDOQI guidelines for clinical interpretation. In patients with unstable renal function, e.g. those with acute kidney injury, the eGFR may not accurately reflect actual GFR. eGFR- Date Value Ref Range Status 12/11/2018 >60 Final P.O.C.T. RESULTS: N/A February 29, 2020 TREATMENT: N/A PERIPHERAL IV DATA: Ambulatory: A peripheral IV was started in the Left antecubital site with a Angio cath: 22 gauge. RADIOLOGY DEPARTMENT: CT; Exam(s) Completed: Abdomen/Pelvis SIGNATURE: MELBA Awad PATIENT NAME: Francisco Silver DATE: February 29, 2020 TIME: 8:12 AM [facility] Evaluation note Note Date & Type Note Facility Evaluation note N/A Dept. of Dermato logy Reason for referral (narrative) Note Date & Type Note Facility Dept. of Dermatology Summary Purpose Family History No Family History Records FoundThere may be information available, but it has not been provided by the sender.No Family History Records FoundNo Family History Records Found Advance Directives No Advanced Directives Records FoundThere may be information available, but it has not been provided by the sender.No Advanced Directives Records FoundNo Advanced Directives Records Found Chief Complaint Chief Complaint Description Start Date lower back pain Preliminary chief co mplaint data, not yet signed by the author as of Instructions Instruction Description Start Date CompletedPatient advised to follow-up with Primary Care Physician for BMI management. Assessments There may be information available, but it has not been provided by the sender. Review of System There may be information available, but it has not been provided by the sender. History of Present Illness There may be information available, but it has not been provided by the sender. Additional Source Comments (unrecognized sect ion and content) No Status Records FoundNo Status Records FoundNo Status Records Found INFORMATION SOURCE (unrecogn ized section and content) DATE CREATED AUTHOR AUTHOR'S RAIN ATION 03/15/2019 [facility] ([place]) DATE CREATED AUTHOR AUTHOR'S RAIN ATION 09/05/2020 [facility] Reason for Visit (unrecogniz ed section and content) FOR RECORDS PERTAINING TO PATIENTS WHO ARE OR HAVE BEEN ENROLLED IN A CHEMICAL DEPENDENCY/SUBSTANCEABUSE PROGRAM, SOME INFORMATION MAY BE OMITTED. This clinical summary was aggregated from multiple sources. Caution should be exercised in using it in the provision of clinical care. This summary normalizes information from multiple sources, and as a consequence, information in this document may materially change the coding, format and clinical context of patient data. In addition, data may be omitted in some cases. CLINICAL DECISIONS SHOULD BE BASED ON THE PRIMARY CLINICAL RECORDS. [employer] [facility]. provides no warranty or guarantee of the accuracy or completeness of information in this document.
[2023-04-15 10:47] LABS: AST(SGOT) 19 U/L (15-37); Alanine Aminotransfer ALT/SGPT 43 U/L (16-61); Albumin, Serum 3.7 g/dL (3.2-5.0); Alkaline Phosphatase 66 U/L (45-117); Bilirubin, Direct 0.26 mg/dL (0.00-0.30); Cholesterol 209 mg/dL (200); Globulin 3.4 g/dL (2.2-4.2); High Density Lipoprotein 56 mg/dL; Protein, Total 7.1 g/dL (6.4-8.2); Triglycerides 101 mg/dL; Very Low Density Lipoprotein 20 mg/dL (5-40)
== END | disposition home or self-care (01) ==
LOC: MTLAB 07:16
PROVIDERS: PCP Family Medicine; Referring Provider Nurse Practitioner Gerontology; Visit Provider Nurse Practitioner Gerontology
DX: E78.00 Pure hypercholesterolemia, unspecified (principal)
CPT/HCPCS: 36415; 80061; 80076

== ENCOUNTER → 2024-01-17 | Outpatient (CLI) | payer BC, SELFPAY ==
[2024-01-17 09:57] LABS: Hematocrit 47.9 % (40-54); Hemoglobin 16.3 g/dL (13.0-16.5); Mean Corpuscular Hgb 29.8 pg (27.0-32.0); Mean Corpuscular Volume 87.6 fL (80-94); Mean Platelet Vol. 8.8 fl (6.2-12.0); Platelet Count 244 K/mm3 (150-450); RBC Distribution Width CV 12.6 % (11.6-14.6); RBC Distribution Width SD 40.4 fl (35.1-43.9); Red Blood Count 5.47 M/mm3 (4.6-6.2)
[2024-01-17 10:24] LABS: ALB/GLOB Ratio 1.1 RATIO (0.9-2.4); AST(SGOT) 21 U/L (15-37); Alanine Aminotransfer ALT/SGPT 53 U/L (16-61); Alkaline Phosphatase 67 U/L (45-117); Anion Gap 3 (5-15); BUN 14 mg/dL (7-18); BUN/Creat Ratio 12.1 RATIO (10-20); Calcium,Total 9.2 mg/dL (8.5-10.1); Chloride 105 mmol/L (98-107); Cholesterol 206 mg/dL (200); Creatinine, Serum 1.16 mg/dL (0.70-1.30); EST Glomerular Filtration Rate 71 mL/min (>60); Est Glom Filt Rate - Afr Amer 86 mL/min (>60); Globulin 3.5 g/dL (2.2-4.2); Glucose 92 mg/dL (74-106); High Density Lipoprotein 62 mg/dL; PSA,Total - Annual Screen 1.73 ng/mL (0.00-4.00); Potassium 4.5 mmol/L (3.5-5.1); Protein, Total 7.5 g/dL (6.4-8.2); Sodium Level 139 mmol/L (136-145); Triglycerides 74 mg/dL; Very Low Density Lipoprotein 15 mg/dL (5-40)
[2024-01-22 09:07] LABS: Testosterone, % Free 2.85 % (1.50-4.20); Testosterone, Free 17.47 ng/dL (5.00-21.00); Testosterone, Total 613 ng/dL (264-916)
== END | disposition home or self-care (01) ==
PROVIDERS: PCP Family Medicine
DX: Z00.00 Encounter for general adult medical examination without abnormal findings (principal)
CPT/HCPCS: 36415; 80053; 80061; 84153; 84402; 84403; 85027; G0103

== ENCOUNTER → 2024-01-31 | Outpatient (CLI) | payer BC, SELFPAY ==
[2024-02-08 14:07] LABS: Testosterone, % Free 3.54 % (1.50-4.20); Testosterone, Free 17.95 ng/dL (5.00-21.00); Testosterone, Total 507 ng/dL (264-916)
== END | disposition home or self-care (01) ==
LOC: LAB 08:30
PROVIDERS: PCP Family Medicine; Referring Provider Family Medicine; Visit Provider Family Medicine
DX: Z00.00 Encounter for general adult medical examination without abnormal findings (principal); K21.9 Gastro-esophageal reflux disease without esophagitis; G47.30 Sleep apnea, unspecified; R53.83 Other fatigue
CPT/HCPCS: 36415; 82306; 84402; 84403; 84443